=== PATIENT | male | born 1990 | race Caucasian/White ===

== ENCOUNTER 2024-07-03 19:28 | Emergency (ER) | payer OTHER, SELFPAY ==
--- NOTE | ~2024-07-03 | XR_ITS ---
EXAMINATION: XR HAND, RIGHT CLINICAL INFORMATION: punched a wall COMPARISON: None TECHNIQUE: PA, lateral, and oblique views of the right hand. FINDINGS: The bones and soft tissues are unremarkable. No fracture. Alignment is anatomic. Joint spaces are maintained. No erosions or soft tissue calcifications. XR/XR hand RT min 3V IMPRESSION: Normal right hand. Electronically signed by: Miguel Johnson MD 07/03/2024 11:37 PM EST
[2024-07-03 19:41] VITALS: BP 128/86; PULSE 86; RESP 18; TEMP 36.7; O2SAT 98
[2024-07-03 19:50] VITALS: BP 121/86; BP 132/90; PULSE 89; PULSE 92; RESP 16; TEMP 36.3; O2SAT 95; O2SAT 97; BMI 26.9
--- NOTE | 2024-07-03 20:03 | ED_ITS ---
HPI - Extremity Problem General Chief complaint: Extremity Injury, Upper Stated complaint: R HAND PAIN , PUNCHED WALL YESTERDAY Time Seen by Provider: 07/03/24 19:53 Source: patient and EMS Mode of arrival: EMS Limitations: no limitations History of Present Illness ED Provider: DIANNE DEL CASTILLO Narrative: 34 yo male with PMH of PTSD, seizures, anxiety and depression, R hand dominant and prior fracture of R hand who is on S21 at [facility] has been there 2 hours and punched a wall no has R hand pain. He notes he has chronic tingling in his fingers from prior injury. 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) Pain Consistency: constant Location: right and upper extremity Quality: aching Radiation: none Relieving factors: immobilization Exacerbating factors: range of motion Associated symptoms: denies other symptoms Context: other (punched a wall) Related Data Allergies Allergy/AdvReac Type Severity Reaction Status Date / Time bee pollen [bee stings] Allergy Anaphylaxis Verified 07/03/24 20:00 carbamazepine [From Tegretol] Allergy Hives Verified 07/03/24 20:00 choline fenofibrate Allergy Hives Verified 07/03/24 20:00 [From Trilipix] clonazepam Allergy Hives Verified 07/03/24 20:00 oxcarbazepine Allergy Hives Verified 07/03/24 20:00 [From Trileptal] Review of Systems Review of Systems: Constitutional : No Fever, No Chills ENT/Mouth : No Ear Pain, No Hoarseness, No sore throat Eyes: No Eye Pain, No Swelling, No Redness, No Foreign Body Cardiovascular : No Chest Pain, No SOB Respiratory : No Cough, No Dyspnea Gastrointestinal : No Nausea, No Vomiting, No Diarrhea, No abdominal Pain Genitourinary : No Dysuria, No Hematuria Musculoskeletal : positive joint pain, No Myalgias, pos Joint Swelling Skin : No Skin lacerations, No rash Neuro : No Weakness, No Numbness All other systems reviewed and are negative [facility] Past Medical History Attestation statement: The following information was validated with the patient. Source: old records reviewed Medical History (Updated 07/03/24 @ 20:50 by Meagan Dean DO) Seizures PTSD (post-traumatic stress disorder) Social History Social History (Updated 07/03/24 @ 20:12 by Meagan Dianne, DO) Patient Tobacco Use Status: Current someday Tobacco user Smoked in Last 30 Days: Yes Use of substances other than those prescribed or required for medical reasons: No Advance Directives: No Advance Directives Information Provided: Yes Physical Exam Vital Signs: Vital Signs: Last Vital Signs Temp 97.3 F 07/03/24 19:50 Pulse 89 07/03/24 19:50 Resp 16 07/03/24 19:50 BP 121/86 07/03/24 19:50 Pulse Ox 97 07/03/24 19:50 O2 Del Method Room Air 07/03/24 19:50 BMI result Body Mass Index 26.9 Appearance: Alert. Oriented X3. No acute distress. Eyes: Pupils equal, round and reactive to light. ENT: Pharynx normal. Neck: Normal inspection. Neck supple. CVS: Normal heart rate and rhythm. Pulses normal. Respiratory: No respiratory distress. Breath sounds normal. Abdomen: Soft and non-tender. Skin: Skin warm and dry. Normal skin color. Extremities: No lower extremity edema. R hand moderate swelling ttp along 3rd and 4th/5th metatarsals he reports chronic tingling in 4th/5th fingers BCR in digits, 2+ radial pulse Neuro: Oriented X 3. No motor deficit. No sensory deficit. Course Course Course Narrative: signed out to [employer] pending xray Medications Administered Discontinued Medications Generic Name Dose Route Start Last Admin Trade Name Khrisq PRN Reason Stop Dose Admin Acetaminophen 650 mg 07/03/24 20:02 07/03/24 20:28 Acetaminophen 325 Mg Tablet PO 07/03/24 20:03 650 mg ONCE ONE Administration Medical Decision Making Medical Decision Making [facility] Narrative: 34 yo male with PMH of PTSD, seizures, anxiety and depression, R hand dominant here with trauma to R hand after punching the wall at this time he has pain on the 3rd/4th/5th metacarpals xray ordered. No other injuries reported. Differential Diagnosis Differential Diagnoses: The differential diagnosis associated with the presentation includes strain, contusion, fracture Independent Interpretation I performed an independent interpretation of an: Plain X-Ray Independent Historian Clinical information obtained from an independent historian. History obtained from or confirmed by: EMS External Record Review External record reviewed: Outpatient record Procedures Orthopedic Splinting/Casting Injury #1: Side: right Upper Extremity Injury Location: wrist and hand Upper Extremity Immobilizer: wrist splint Additional Comments: NV intact at baseline Discharge Plan Discharge Clinical Impression: Sprain and strain of wrist Contusion of hand Qualifiers: Encounter type: initial encounter Laterality: right Qualified Code(s): S60.221A - Contusion of right hand, initial encounter Patient Disposition: Still a Patient Instructions: Contusion in Adults (ED), Wrist Sprain (ED) Additional Instructions: wear splint for one week follow up with orthopedics if not better or any other concerning signs tylenol/motrin for pain Referrals: [facility] [Provider Group] Print Language: Danish
[2024-07-03] MEDS: Acetaminophen 325 MG TABLET 650 MG PO (20:28)
[2024-07-03 21:44] VITALS: BP 119/92; PULSE 85; RESP 16; TEMP 36.6
[2024-07-04 00:12] VITALS: BP 120/73; PULSE 68; RESP 16; TEMP 36.6; O2SAT 98
[2024-07-04 00:47] VITALS: BP 120/73; PULSE 68; RESP 16; TEMP 36.6; O2SAT 98
--- OUTSIDE RECORDS SUMMARY | 2024-07-10 15:59 | XMS_ITS | Continuity of Care Document ---
Author Organization [facility] Address [address] [place] [address] Phone Care Team Providers Care Player Services Representative Name Role Phone Unavailable Unavailable Unavailable Advance Directives Directive Yes / No Effective Date File Name No Information Encounters Encounter Description Practice Location Reason(s) For Visit Diagnoses Date Provider Providers Copied on Encounter mimi Torrez [facility], [address] [place] [address],[address], [place], [place], [id number], [place] tel:[phone] [facility] Screening for obesity 0 1200 5 No Information Family History Family Member Type Diagnosis Age At Onset No Information Payers Payer name Insurance type Covered constitution party ID Authoriza tion(s) No Information Social History Type Description Quantity Date Captured Comments Sex Male Smoking Status No Information Chief Complaint And Reason For Visit No Information Reason For Referral Reason For Referral No Information History Of Present Illness Encounter Date Complaint History Of Prese nt Illness No Information Functional Status Date Functional Assessmen t No Information Instructions Date Instruction Additional Infor mation No Information Assessments Type Assessment Date No Information Patient Care Teams Name Effective Dates (start - stop) Status Members No Information
--- OUTSIDE RECORDS SUMMARY | 2024-07-10 16:01 | XMS_ITS | Continuity of Care Document ---
Author Organization [facility] Address [address] [place] [address] Phone Care Team Providers Care Clerk Entry Level Name Role Phone Unavailable Unavailable Unavailable Advance Directives Directive Yes / No Effective Date File Name No Information Encounters Encounter Description Practice Location Reason(s) For Visit Diagnoses Date Provider Providers Copied on Encounter mimi Torrez [facility], [address] [place] [address],[address], [place], [place], [id number], [place] tel:[phone] [facility] Screening for obesity 0 1200 5 No Information Family History Family Member Type Diagnosis Age At Onset No Information Payers Payer name Insurance type Covered alliance party ID Authoriza tion(s) No Information Social [...]
== END 2024-07-04 00:48 | disposition home or self-care (01) ==
PROVIDERS: Emergency Provider Emergency Medicine Emergency Medical Services
DX: S60.221A Contusion of right hand, initial encounter (principal); M79.641 Pain in right hand; X58.XXXA Exposure to other specified factors, initial encounter; Y93.89 Activity, other specified; Y92.89 Other specified places as the place of occurrence of the external cause; Y99.8 Other external cause status
CPT/HCPCS: 29125; 73130; 99283; 99284

== ENCOUNTER 2024-07-06 05:11 | Emergency (ER) | payer OTHER, SELFPAY ==
[2024-07-06 05:15] VITALS: BP 138/95; PULSE 77; O2SAT 100
[2024-07-06 05:17] VITALS: BP 123/84; PULSE 76; RESP 16; TEMP 36.1; O2SAT 98; BMI 27.4
--- NOTE | 2024-07-06 06:16 | ECG_ITS ---
Test Reason : overdose Blood Pressure : / mmHG Vent. Rate : 063 BPM Atrial Rate : 063 BPM P-R Int : 140 ms QRS Dur : 102 ms QT Int : 414 ms P-R-T Axes : 027 070 017 degrees QTc Int : 423 ms Normal sinus rhythm Normal ECG No previous ECGs available Referred By: Brian Hoffman Electronically Signed By:Adama Reynoso
--- NOTE | 2024-07-06 06:18 | ED_ITS ---
HPI - General Adult General Chief complaint: ETOH/Substance Use Stated complaint: Siomara Salas - Unkwn Substance, Sectiion 12 Time Seen by Provider: 07/06/24 05:33 Source: patient Mode of arrival: ambulatory History of Present Illness ED Provider: HPI narrative: 34 years old with history of see seizures anxiety, and deeper came from [facility] as he took 2 tablets of Klonopin which was given to him by his room. Patient has same here responsive at [facility] when seen by the staff after arrival he told that he was given 2 tablets by his roommate which were for sleeping and anxiety likely Klonopin patient denies any other substance abuse Related Data Allergies Allergy/AdvReac Type Severity Reaction Status Date / Time bee pollen [bee stings] Allergy Anaphylaxis Verified 07/06/24 05:19 carbamazepine [From Tegretol] Allergy Hives Verified 07/06/24 05:19 choline fenofibrate Allergy Hives Verified 07/06/24 05:19 [From Trilipix] clonazepam Allergy Hives Verified 07/06/24 05:19 oxcarbazepine Allergy Hives Verified 07/06/24 05:19 [From Trileptal] Review of Systems 2 Review of Systems: Yes all other systems are reviewed and are negative [facility] Past Medical History Medical History Seizures PTSD (post-traumatic stress disorder) Social History Social History Patient Tobacco Use Status: Current someday Tobacco user Advance Directives: No Advance Directives Information Provided: Yes Do you have a plan to hurt others: No Plan Physical Exam ED Vital Signs: Vital Signs - 24 hr 07/06/24 05:17 07/06/24 09:07 Temperature 96.9 F 97 F Pulse Rate 76 61 Respiratory Rate 16 18 Blood Pressure 123/84 114/75 Pulse Oximetry 98 99 Oxygen Delivery Method Room Air Room Air BMI result Body Mass Index 27.4 Appearance: Alert. Oriented X3. Sleepy but arousable No acute distress. Eyes: PERRLA, No Nystagmus ENT: Pharynx normal. Oral Mucosa moist Neck: Normal inspection. Neck supple. CVS: Normal heart rate and rhythm. Pulses normal. Respiratory: No respiratory distress. Equal air entry bilateral, no wheezing/rales/rhonchi Abdomen: Soft and nontender. Bowel sounds are present, no mass palpable, no CVA tenderness Skin: Skin warm and dry. Normal skin color. Normal skin turgor. Extremities: No lower extremity edema. No calf tenderness Neuro: Oriented X 3. No motor deficit. No sensory deficit.No cerebellar signs , cranial nerves II-XII intact Medical Decision Making Medical Decision Making [facility] Narrative: Patient likely took 2 tablets of Klonopin will check the urine drug screening other labs patient is signed out to Dr. Gastelum pending disposition Lab Data [facility] Lab Attestation statement: I reviewed the patient's lab results. 07/06/24 06:23 07/06/24 06:23 Labs: Lab Results 07/06/24 07/06/24 Range/Units 06:23 08:04 WBC 10.0 (4.8-10.8) X10*3/uL RBC 4.76 (4.60-5.80) X10*6/uL Hgb 13.7 L (14.0-18.0) g/dl Hct 39.1 L (42.0-52.0) % MCV 82.1 (80.0-98.0) fL MCH 28.8 (27.0-33.0) pg MCHC 35.0 (31.0-36.0) g/dl RDW 12.5 (11.0-16.0) % Plt Count 172 (160-400) X10*3/uL MPV 10.5 (9.4-12.4) fL Immature Gran % (Auto) 0.9 H (0.0-0.4) % Neut % (Auto) 60.9 (45-73) % Lymph % (Auto) 28.0 (20-40) % [place] % (Auto) 8.1 (2-11) % Eos % (Auto) 1.6 (0-4) % Baso % (Auto) 0.5 (0-2) % Lymph # (Auto) 2.8 (1.2-4.9) X10*3/uL [place] # (Auto) 0.8 (0.1-1.2) X10*3/uL Eos # (Auto) 0.2 (0.0-0.4) X10*3/uL Baso # (Auto) 0.1 (0.0-0.2) X10*3/uL Abs Immat Gran (auto) 0.09 H (0.00-0.03) X10*3/uL Absolute Neuts (auto) 6.1 (2.0-8.3) x10*3/uL Absolute Nucleated RBC 0.000 (0.0-0.012) X10*3/uL Nucleated RBC % (auto) 0.0 (0.0-0.2) /100WBC Sodium 141 (135-145) mmol/L Potassium 4.6 (3.3-5.1) mmol/L Chloride 108 (96-108) mmol/L Carbon Dioxide 28 (22-29) mmol/L Anion Gap 10 L (12-20) BUN 13 (9-16) mg/dL Creatinine 0.82 (0.5-1.4) mg/dL Estim Creat Clear Calc 141.9 Estimated GFR > 60 Random Glucose 125 H (60-115) mg/dL Calcium 9.2 (8.4-10.2) mg/dL Total Bilirubin 0.4 (0.0-1.0) mg/dL AST 22 (5-37) U/L ALT 15 (0-40) U/L Alkaline Phosphatase 54 (39-117) U/L Total Protein 6.8 (6.5-8.0) g/dL Albumin 3.7 (3.5-5.0) g/dL Urine Opiates Screen Not Detected (Not Detect) Ur Buprenorphine Scrn Not Detected (Not Detect) ng/mL Ur Oxycodone Screen Not Detected (Not Detect) ng/mL Urine Methadone Screen Not Detected (Not Detect) ng/mL Urine Fentanyl Screen Not Detected (Not Detect) Ur Barbiturates Screen Not Detected (Not Detect) Ur Phencyclidine Scrn Not Detected (Not Detect) Ur Amphetamines Screen Not Detected (Not Detect) U Benzodiazepines Scrn Not Detected (Not Detect) Urine Cocaine Screen Not Detected (Not Detect) U Marijuana (THC) Screen Not Detected (Not Detect) Ethyl Alcohol < 10 mg/dL Discharge Plan Discharge Clinical Impression: Substance abuse Patient Disposition: Still a Patient Print Language: Welsh
[2024-07-06 06:27] LABS: Basophils Absolute Auto 0.1 X10*3/uL (0.0-0.2); Basophils Percent Auto 0.5 % (0-2); Eosinophils Absolute Auto 0.2 X10*3/uL (0.0-0.4); Eosinophils Percent Auto 1.6 % (0-4); Hematocrit 39.1 % (42.0-52.0); Hemoglobin 13.7 g/dl (14.0-18.0); Imm Gran Abs Auto 0.09 X10*3/uL (0.00-0.03); Imm Gran Pct Auto 0.9 % (0.0-0.4); Lymphocytes Absolute Auto 2.8 X10*3/uL (1.2-4.9); MANUAL DIFF FLAG NO; Mean Corpuscular Hemoglobin 28.8 pg (27.0-33.0); Mean Corpuscular Volume 82.1 fL (80.0-98.0); Mean Platelet Volume 10.5 fL (9.4-12.4); Monocytes Absolute Auto 0.8 X10*3/uL (0.1-1.2); Monocytes Percent Auto 8.1 % (2-11); Neutrophils Absolute Auto 6.1 x10*3/uL (2.0-8.3); Neutrophils Percent Auto 60.9 % (45-73); Platelet Count 172 X10*3/uL (160-400); Red Blood Count 4.76 X10*6/uL (4.60-5.80); Red Cell Distribution Width 12.5 % (11.0-16.0)
[2024-07-06 06:42] LABS: Alanine Aminotransferase 15 U/L (0-40); Albumin Level 3.7 g/dL (3.5-5.0); Alkaline Phosphatase 54 U/L (39-117); Anion Gap 10 (12-20); Aspartate Amino Transferase 22 U/L (5-37); Bilirubin Total 0.4 mg/dL (0.0-1.0); Blood Urea Nitrogen 13 mg/dL (9-16); Calcium 9.2 mg/dL (8.4-10.2); Carbon Dioxide 28 mmol/L (22-29); Chloride 108 mmol/L (96-108); Creatinine Clr Calc Pharmacy 141.9; Estimated Glomerular Filt Rate > 60; Ethanol < 10 mg/dL; Glucose Random 125 mg/dL (60-115); Potassium 4.6 mmol/L (3.3-5.1); Sodium 141 mmol/L (135-145); Total Protein 6.8 g/dL (6.5-8.0)
[2024-07-06 08:30] LABS: Amphetamine Screen Urine Not Detected (Not Detect); Barbiturates, Urine Not Detected (Not Detect); Benzodiazepines Screen Urine Not Detected (Not Detect); Buprenorphine Scr Not Detected (Not Detect); Cannabinoid Screen Urine Not Detected (Not Detect); Cocaine Screen Urine Not Detected (Not Detect); Fentanyl, urine Not Detected (Not Detect); Methadone Screen, Urine Not Detected (Not Detect); Opiate Screen Urine Not Detected (Not Detect); Oxycodone Screen Urine Not Detected (Not Detect); Phencyclidine Screen Urine Not Detected (Not Detect)
[2024-07-06 09:07] VITALS: BP 114/75; PULSE 61; RESP 18; TEMP 36.1; O2SAT 99
--- NOTE | 2024-07-06 11:24 | PHA.MEDREC ---
Pharmacy Consult ? Medication Reconciliation Pharmacy has completed the medication reconciliation. Received list from a facility and confirmed med rec based on that list.
[2024-07-06 11:48] VITALS: BP 114/75; PULSE 61; RESP 18; TEMP 36.1; O2SAT 99
--- OUTSIDE RECORDS SUMMARY | 2024-07-11 04:37 | XMS_ITS | Continuity of Care Document ---
Author Organization [facility] Address [address] [place] [address] Phone Care Team Providers Care Pegger Dobby Looms Name Role Phone Unavailable Unavailable Unavailable Advance Directives Directive Yes / No Effective Date File Name No Information Encounters Encounter Description Practice Location Reason(s) For Visit Diagnoses Date Provider Providers Copied on Encounter mimi Torrez [facility], [address] [place] [address],[address], [place], [place], [id number], [place] tel:[phone] [facility] Screening for obesity 0 1200 5 No Information Family History Family Member Type Diagnosis Age At Onset No Information Payers Payer name Insurance type Covered republican ID Authoriza tion(s) No Information Social History [...]
== END 2024-07-06 11:49 ==
PROVIDERS: Internal Medicine; Emergency Provider Emergency Medicine Emergency Medical Services
DX: F19.10 Other psychoactive substance abuse, uncomplicated (principal); F43.10 Post-traumatic stress disorder, unspecified
CPT/HCPCS: 36415; 80053; 80307; 85025; 93005; 99285

== ENCOUNTER → 2024-07-06 06:16 | Outpatient (BNV) | payer OTHER, SELFPAY | PROVIDERS: Emergency Provider Emergency Medicine Emergency Medical Services; Visit Provider Internal Medicine Cardiovascular Disease | DX: T42.4X1A Poisoning by benzodiazepines, accidental (unintentional), initial encounter (principal) | CPT/HCPCS: 93010 ==

== ENCOUNTER 2024-07-07 23:00 | Emergency (ER) | payer OTHER, SELFPAY ==
[2024-07-07 23:11] VITALS: BP 108/72; BP 110/72; PULSE 87; PULSE 91; RESP 15; TEMP 36.7; O2SAT 96; O2SAT 97; BMI 27.1
--- NOTE | 2024-07-07 23:32 | ED_ITS ---
HPI - General Adult General Chief complaint: GI Bleed Stated complaint: ABD PAIN, SHARP PAIN DIZZY PER EMS Time Seen by Provider: 07/07/24 23:31 Source: patient, EMS and RN notes reviewed Mode of arrival: EMS Limitations: no limitations History of Present Illness ED Provider: Nina HPI narrative: 34-year-old male with past medical history significant for seizure disorder on Depakote, anxiety, substance abuse presents for evaluation of a bloody bowel movement Patient reports that he woke up this morning with lower abdominal pain and indicates the area just below his umbilicus. He reports having had a bloody bowel movement prior to arrival. He presents somewhat lethargic but is arousable to verbal stimuli in his answering questions appropriately. He reports a history of bloody bowel movements but is unsure what the cause was. He denies any history of hemorrhoids He denies any history abdominal surgeries Related Data Home Medications ?Medication ?Instructions ?Recorded ?Confirmed acetaminophen 650 mg 650 mg PO Q4H PRN Mild to Moderate 07/06/24 07/06/24 tablet,extended release Pain aluminum-mag hydroxide-simethicone 30 ml PO QID PRN GI Upset 07/06/24 07/06/24 200 mg-200 mg-20 mg/5 mL oral susp aripiprazole 10 mg tablet 10 mg PO DAILY 07/06/24 07/06/24 atorvastatin 40 mg tablet 80 mg PO BEDTIME 07/06/24 07/06/24 benzocaine 15 mg-menthol 3.6 mg 1 nayla mucous membrane Q2H PRN Sore 07/06/24 07/06/24 lozenges Throat calcium carbonate 500 mg PO Q4H PRN Heartburn 07/06/24 07/06/24 clozapine 100 mg tablet 350 mg PO BEDTIME 07/06/24 07/06/24 divalproex 250 mg tablet,extended 250 mg PO DAILY 07/06/24 07/06/24 release 24 hr divalproex 500 mg tablet,extended 1,000 mg PO DAILY 07/06/24 07/06/24 release 24 hr docusate sodium 100 mg tablet 100 mg PO DAILY 07/06/24 07/06/24 guaifenesin 1,200 mg tablet, 1,200 mg PO BID PRN Cough 07/06/24 07/06/24 extended release 12 hr hydroxyzine pamoate 50 mg capsule 50 mg PO Q4H PRN Moderate to 07/06/24 07/06/24 Severe Anxiety ibuprofen 400 mg tablet 400 mg PO Q8H PRN 07/06/24 07/06/24 Body-Ache,Toothache and Headache loperamide 2 mg tablet 2 mg PO Q4H PRN Loose Stool 07/06/24 07/06/24 melatonin 3 mg tablet 3 mg PO BEDTIME PRN Insomnia 07/06/24 07/06/24 metformin 500 mg tablet 1,000 mg PO DAILY 07/06/24 07/06/24 nicotine (polacrilex) 2 mg gum 2 mg buccal Q2H PRN Nicotine 07/06/24 07/06/24 Cravings ondansetron 4 mg disintegrating 4 mg PO Q6H PRN Nausea/Vomiting 07/06/24 07/06/24 tablet propranolol 20 mg tablet 20 mg PO BID 07/06/24 07/06/24 sitagliptin 100 mg tablet 100 mg PO DAILY 07/06/24 07/06/24 trazodone 100 mg tablet 100 mg PO BEDTIME 07/06/24 07/06/24 Allergies Allergy/AdvReac Type Severity Reaction Status Date / Time bee pollen [bee stings] Allergy Anaphylaxis Verified 07/07/24 23:16 carbamazepine [From Tegretol] Allergy Hives Verified 07/07/24 23:16 choline fenofibrate Allergy Hives Verified 07/07/24 23:16 [From Trilipix] clonazepam Allergy Hives Verified 07/07/24 23:16 oxcarbazepine Allergy Hives Verified 07/07/24 23:16 [From Trileptal] Review of Systems 2 Constitutional: Constitutional: Denies body ache(s), Denies chills, Denies fever(s) and Denies headache(s) Eyes: Eyes: Denies blurry vision ENT: Denies vertigo, Denies dizziness and Denies headache(s) Cardiovascular: Cardiovascular: Denies chest pain and Denies dyspnea Respiratory: Respiratory: Denies cough and Denies dyspnea Gastrointestinal: Gastrointestinal: Reports abdominal pain, Denies melena, Reports hematochezia, Denies nausea and Denies vomiting Musculoskeletal: Musculoskeletal: Denies back pain Integumentary/Breasts: Skin/Breast: Denies rash Neurologic: Denies vertigo, Denies dizziness and Denies headache(s) Psychiatric: Psychiatric: Denies anxiety PMFSH Past Medical History Medical History Seizures PTSD (post-traumatic stress disorder) Social History Social History Patient Tobacco Use Status: Current someday Tobacco user Advance Directives: No Advance Directives Information Provided: No Do you have a plan to hurt others: No Plan Physical Exam ED Vital Signs: Vital Signs - 24 hr 07/07/24 23:11 Temperature 98.1 F Pulse Rate 87 Respiratory Rate 15 Blood Pressure 110/72 Pulse Oximetry 96 Oxygen Delivery Method Room Air BMI result Body Mass Index 27.1 Const General: healthy appearing, comfortable, no acute distress, alert and awake Nutritional Appearance: well nourished Orientation/consciousness: patient oriented x3 HENMT Head: Yes normocephalic and Yes atraumatic Eyes Eyelids: Yes eyelids normal Conjunctivae: conjunctivae normal Sclerae: sclerae normal Corneas: corneas normal Pupils: Equal, round and reactive pupils present EOM: EOMs intact bilaterally Neck Neck: Yes full ROM Resp Effort & Inspection: normal respiratory effort, able to speak in complete sentences and not labored Cardio Rate: regular rate Rhythm: regular rhythm GI Inspection: No distended Palpation (GI): Soft to palpation, not firm, Tenderness to palpation present (GI) periumbilically and suprapubicly, no guarding and not rigid Rectal Exam - Male: Yes deferred (Patient declined rectal examination initially) Skin General skin exam: elasticity normal Neuro General: patient oriented x3 Cranial nerves: Yes Equal, round and reactive pupils present and Yes Bilaterally intact EOM present Cognition (Neuro): normal cognition Extrem Other: Moving all extremities well without any obvious deformities Medical Decision Making Medical Decision Making [facility] Narrative: 34-year-old male presents for evaluation of abdominal pain, rectal bleeding. On arrival he is not hypotensive or tachycardic. He declined rectal examination. His abdominal exam is benign. He is mild tenderness in the infraumbilical region. Plan for labs including H&H. Differential Diagnosis Differential Diagnoses: The differential diagnosis associated with the presentation includes Abdominal pain Constipation Diverticulitis Diverticular bleed Internal hemorrhoid GI bleed Lab Data [facility] Lab Attestation statement: I reviewed the patient's lab results. There was no leukocytosis. Patient has a mild normocytic anemia although his H&H are slightly improved when compared to labs drawn yesterday morning. Normal platelet count. No left shift 07/07/24 23:52 07/07/24 23:51 Labs: Lab Results 07/07/24 07/07/24 07/07/24 Range/Units 23:51 23:52 23:57 WBC 10.0 (4.8-10.8) X10*3/uL RBC 4.86 (4.60-5.80) X10*6/uL Hgb 13.9 L (14.0-18.0) g/dl Hct 39.2 L (42.0-52.0) % MCV 80.7 (80.0-98.0) fL MCH 28.6 (27.0-33.0) pg MCHC 35.5 (31.0-36.0) g/dl RDW 12.8 (11.0-16.0) % Plt Count 184 (160-400) X10*3/uL MPV 10.7 (9.4-12.4) fL Immature Gran % (Auto) 0.8 H (0.0-0.4) % Neut % (Auto) 58.3 (45-73) % Lymph % (Auto) 31.2 (20-40) % [place] % (Auto) 7.5 (2-11) % Eos % (Auto) 1.6 (0-4) % Baso % (Auto) 0.6 (0-2) % Lymph # (Auto) 3.1 (1.2-4.9) X10*3/uL [place] # (Auto) 0.8 (0.1-1.2) X10*3/uL Eos # (Auto) 0.2 (0.0-0.4) X10*3/uL Baso # (Auto) 0.1 (0.0-0.2) X10*3/uL Abs Immat Gran (auto) 0.08 H (0.00-0.03) X10*3/uL Absolute Neuts (auto) 5.8 (2.0-8.3) x10*3/uL Absolute Nucleated RBC 0.000 (0.0-0.012) X10*3/uL Nucleated RBC % (auto) 0.0 (0.0-0.2) /100WBC PT 12.0 (10.9-12.4) SEC INR 1.0 (0.9-1.1) Sodium 141 (135-145) mmol/L Potassium 4.7 (3.3-5.1) mmol/L Chloride 106 (96-108) mmol/L Carbon Dioxide 27 (22-29) mmol/L Anion Gap 13 (12-20) BUN 17 H (9-16) mg/dL Creatinine 0.73 (0.5-1.4) mg/dL Estim Creat Clear Calc 159.4 Estimated GFR > 60 Random Glucose 154 H (60-115) mg/dL Lactic Acid 1.4 (0.5-2.0) mmol/L Calcium 9.3 (8.4-10.2) mg/dL Total Bilirubin 0.2 (0.0-1.0) mg/dL AST 26 (5-37) U/L ALT 15 (0-40) U/L Alkaline Phosphatase 53 (39-117) U/L Total Protein 6.9 (6.5-8.0) g/dL Albumin 3.8 (3.5-5.0) g/dL Lipase 41 (8-78) U/L Urine Color Yellow Urine Appearance Clear Urine pH 5.5 (5.0-9.0) Ur Specific [place] 1.025 (1.005-1.025) Urine Protein Negative (Neg-Trace) mg/dL Urine Glucose (UA) 250 H (Negative) mg/dL Urine Ketones Trace (Negative) mg/dL Urine Blood Negative (Negative) Urine Nitrite Negative (Negative) Ur Leukocyte Esterase Negative (Negative) Urine RBC 0-2 (0-2) /HPF Urine WBC 0-5 (0-5) /HPF Ur Squamous Epith Cells 0-2 (0-2) /HPF Urine Bacteria None Seen (None Seen) Hyaline Casts 0-2 (0-2) /LPF Urine Opiates Screen Not Detected (Not Detect) Ur Buprenorphine Scrn Not Detected (Not Detect) ng/mL Ur Oxycodone Screen Not Detected (Not Detect) ng/mL Urine Methadone Screen Not Detected (Not Detect) ng/mL Urine Fentanyl Screen Not Detected (Not Detect) Ur Barbiturates Screen Not Detected (Not Detect) Valproic Acid 63.1 (50.0-100.0) mcg/mL Ur Phencyclidine Scrn Not Detected (Not Detect) Ur Amphetamines Screen Not Detected (Not Detect) U Benzodiazepines Scrn Not Detected (Not Detect) Urine Cocaine Screen Not Detected (Not Detect) U Marijuana (THC) Screen Not Detected (Not Detect) Ethyl Alcohol < 10 mg/dL Blood Type O Positive Antibody Screen NEGATIVE Discharge Plan Discharge Clinical Impression: Abdominal pain, Bright red blood per rectum Patient Disposition: Xfer [facility]iatric [facility] Transfer Details: Siomara Salas Instructions: Rectal Bleeding (ED), Abdominal Pain (ED) Additional Instructions: Your workup in the ER today was reassuring. Your blood counts are actually slightly higher than they were yesterday which is reassuring. You may follow-up with GI at the number provided when able Return for new or worsening symptoms Prescriptions: No Action atorvastatin 40 mg Tablet 80 mg PO BEDTIME metformin 500 mg Tablet 1,000 mg PO DAILY nicotine (polacrilex) 2 mg Gum 2 mg BUCCAL Q2H PRN (Reason: Nicotine Cravings) clozapine 100 mg Tablet 350 mg PO BEDTIME loperamide 2 mg Tablet 2 mg PO Q4H MDD 16mg in 24 hours PRN (Reason: Loose Stool) Rx Instructions: administer after each loose stool until symptoms controlled; do not exceed 16 mg per 24 hrs hydroxyzine pamoate 50 mg Capsule 50 mg PO Q4H PRN (Reason: Moderate to Severe Anxiety) melatonin 3 mg Tablet 3 mg PO BEDTIME PRN (Reason: Insomnia) acetaminophen 650 mg Tablet Extended Release 650 mg PO Q4H PRN (Reason: Mild to Moderate Pain) trazodone 100 mg Tablet 100 mg PO BEDTIME divalproex 500 mg Tablet Extended Release 24 Hr 1,000 mg PO DAILY Rx Instructions: Take 1 tab along with 250mg tab for total of 1250mg daily ibuprofen 400 mg Tablet 400 mg PO Q8H PRN (Reason: Body-Ache,Toothache and Headache) calcium carbonate 500 mg calcium (1,250 mg) Tablet,Chewable 500 mg PO Q4H PRN (Reason: Heartburn) alum-mag hydroxide-simeth 200-200-20 mg/5 mL Suspension 30 ml PO QID PRN (Reason: GI Upset) Rx Instructions: administer between meals and at bedtime propranolol 20 mg Tablet 20 mg PO BID ondansetron 4 mg Tablet,Disintegrating 4 mg PO Q6H PRN (Reason: Nausea/Vomiting) docusate sodium 100 mg Tablet 100 mg PO DAILY aripiprazole 10 mg Tablet 10 mg PO DAILY divalproex 250 mg Tablet Extended Release 24 Hr 250 mg PO DAILY Rx Instructions: Take 1 tab along with 2 500mg tabs for total of 1250mg daily guaifenesin 1,200 mg Tablet Extended Release 12hr 1,200 mg PO BID MDD 2400mg in 24 hours PRN (Reason: Cough) benzocaine-menthol 15-3.6 mg Lozenge 1 nayla MUCOUS MEMBRANE Q2H PRN (Reason: Sore Throat) sitagliptin 100 mg Tablet 100 mg PO DAILY Referrals: Juan Carlton MD [Physician] - (bright red blood per rectum) Print Language: Welsh
[2024-07-08] LABS: MANUAL DIFF FLAG NO
[2024-07-08 00:01] LABS: Basophils Absolute Auto 0.1 X10*3/uL (0.0-0.2); Basophils Percent Auto 0.6 % (0-2); Eosinophils Absolute Auto 0.2 X10*3/uL (0.0-0.4); Eosinophils Percent Auto 1.6 % (0-4); Hematocrit 39.2 % (42.0-52.0); Hemoglobin 13.9 g/dl (14.0-18.0); Imm Gran Abs Auto 0.08 X10*3/uL (0.00-0.03); Imm Gran Pct Auto 0.8 % (0.0-0.4); Lymphocytes Absolute Auto 3.1 X10*3/uL (1.2-4.9); Lymphocytes Percent Auto 31.2 % (20-40); Mean Corpuscular HGB Conc 35.5 g/dl (31.0-36.0); Mean Corpuscular Hemoglobin 28.6 pg (27.0-33.0); Mean Corpuscular Volume 80.7 fL (80.0-98.0); Mean Platelet Volume 10.7 fL (9.4-12.4); Monocytes Absolute Auto 0.8 X10*3/uL (0.1-1.2); Monocytes Percent Auto 7.5 % (2-11); Neutrophils Absolute Auto 5.8 x10*3/uL (2.0-8.3); Neutrophils Percent Auto 58.3 % (45-73); Platelet Count 184 X10*3/uL (160-400); Red Blood Count 4.86 X10*6/uL (4.60-5.80); Red Cell Distribution Width 12.8 % (11.0-16.0)
[2024-07-08 00:13] LABS: Appearance Urine Clear; Color Urine Yellow; Glucose Urine UA 250 mg/dL (Negative); Leukocyte Esterase Urine Negative (Negative); Nitrite Urine Negative (Negative); PH 5.5 (5.0-9.0); Specific Gravity - Urine 1.025 (1.005-1.025); Urine Blood Negative (Negative); Urine Ketones Trace mg/dL (Negative); Urine Protein Negative (Neg-Trace)
[2024-07-08 00:16] LABS: Lactic Acid 1.4 mmol/L (0.5-2.0)
[2024-07-08 00:18] LABS: Valproate 63.1 mcg/mL (50.0-100.0)
[2024-07-08 00:18] LABS: Bacteria Urine None Seen (None Seen); Hyaline Casts Urine 0-2 /LPF (0-2); RBC Urine 0-2 /HPF (0-2); Squamous Epithelial Cell Urine 0-2 /HPF (0-2); WBC Urine 0-5 /HPF (0-5)
[2024-07-08 00:19] LABS: Alanine Aminotransferase 15 U/L (0-40); Albumin Level 3.8 g/dL (3.5-5.0); Alkaline Phosphatase 53 U/L (39-117); Anion Gap 13 (12-20); Aspartate Amino Transferase 26 U/L (5-37); Bilirubin Total 0.2 mg/dL (0.0-1.0); Blood Urea Nitrogen 17 mg/dL (9-16); Calcium 9.3 mg/dL (8.4-10.2); Carbon Dioxide 27 mmol/L (22-29); Chloride 106 mmol/L (96-108); Creatinine Clr Calc Pharmacy 159.4; Estimated Glomerular Filt Rate > 60; Ethanol < 10 mg/dL; Glucose Random 154 mg/dL (60-115); Lipase 41 U/L (8-78); Potassium 4.7 mmol/L (3.3-5.1); Sodium 141 mmol/L (135-145); Total Protein 6.9 g/dL (6.5-8.0)
[2024-07-08 00:59] LABS: Amphetamine Screen Urine Not Detected (Not Detect); Barbiturates, Urine Not Detected (Not Detect); Benzodiazepines Screen Urine Not Detected (Not Detect); Buprenorphine Scr Not Detected (Not Detect); Cannabinoid Screen Urine Not Detected (Not Detect); Cocaine Screen Urine Not Detected (Not Detect); Fentanyl, urine Not Detected (Not Detect); Methadone Screen, Urine Not Detected (Not Detect); Opiate Screen Urine Not Detected (Not Detect); Oxycodone Screen Urine Not Detected (Not Detect); Phencyclidine Screen Urine Not Detected (Not Detect)
[2024-07-08 02:25] VITALS: BP 107/65; PULSE 67; RESP 18; TEMP 36.7; O2SAT 96
== END 2024-07-08 02:25 ==
PROVIDERS: Physician Assistant; Emergency Provider Emergency Medicine
DX: K92.1 Melena (principal); R10.2 Pelvic and perineal pain; R42 Dizziness and giddiness; F17.210 Nicotine dependence, cigarettes, uncomplicated; R53.83 Other fatigue; Z79.899 Other long term (current) drug therapy; Z51.81 Encounter for therapeutic drug level monitoring
CPT/HCPCS: 36415; 80053; 80164; 80307; 81001; 83605; 83690; 85025; 85610; 86850; 86900; 86901; 99285

== ENCOUNTER 2024-07-09 08:11 | Outpatient (REF) | payer OTHER, SELFPAY | END 2024-07-09 08:12 | disposition home or self-care (01) | LOC: HO.HOSX 08:11 | DX: Z13.89 Encounter for screening for other disorder (principal) ==